=== PATIENT | male | born 1955 | race Caucasian/White ===

== ENCOUNTER → 2016-11-27 | Outpatient (CLI) | payer BC, OTHER ==
[~2016-11-27] MED LIST: ALTACE5 M1 PO; ASA81BEC PO; IRON325 PO; LIPITOR20 MG PO; LOPRESSOR 50 MG50 M1 PO; LORTAB 5-500 T1 EAC1 PO; MOM PO; PACERONE 200 M200 M1 PO; PERCOCET 5-3251 EACH PO; PHISOHEX148 ML TP; SENOKOT-S1 TA1 PO; UNICOMPLEX M TA1 TA1 PO
--- NOTE | ~2016-11-27 | 2DMMODE ---
[facility] [place] [address] 2 D/M-MODE ECHOCARDIOGRAM Name: MIAESTEBAN JOSE Room #: REG [facility]#: [id number] Admission: 11/27/16 Attend Phys: Emil Maza MD Discharge: Date of : 57 Date of Service: 11/27/16 1409 Report #: [id number] THIS REPORT FOR: //name// APPROVED REPORT EXAM: Comprehensive 2D, Doppler, and color-flow Echocardiogram Patient Location: Out-Patient Blood Pressure: 119/71 mmHg HR: 64 bpm Rhythm: NSR Other Information Study Quality: Adequate Indications CAD Hx: CABG, MURMUR, HTN, HLP 2D Dimensions RVDd: 40.44 mm LVEF(%): 66.05 (>50%) IVSd: 11.23 (7-11mm) LVOT Diam: 22.46 (18-24mm) LVDd: 41.67 mm PWd: 11.43 (7-11mm) Ascending Aorta: 30.34 mm LVDs: 26.66 (25-40mm) Aortic Root: 36.00 mm Torres's LVEF: 66.05 % Volumes Left Atrial Volume (Systole) Single Plane 4CH: 45.81 mL Single Plane 2CH: 45.93 mL LA ESV Index: 24.00 mL/m2 Aortic Valve AoV Peak David.: 2.36 m/s AO Peak Gr.: 22.35 mmHg LV Max P.91 mmHg AO V2 VTI: 414.01 mm LV Max: 1.11 m/s Mitral Valve MV PHT: 62.07 ms MV E Max David.: 0.76 m/s E/A Ratio: 1.7 MV A David.: 0.46 m/s MV Decel. Time: 214.[address] [facility] [place] [address] 2 D/M-MODE ECHOCARDIOGRAM Name: ESTEBAN BELLAMY Room #: REG [facility]#: [id number] Admission: 11/27/16 Attend Phys: Emil Maza MD Discharge: Date of : 57 Date of Service: 11/27/16 1409 Report #: [id number] Pulmonary Valve PV Peak David.: 1.10 m/s PV Peak Gr.: 4.83 mmHg Tricuspid Valve TR Peak David.: 2.22 m/s RAP Estimate: 5.00 mmHg TR Peak Gr.: 19.76 mmHg RVSP: 25.00 mmHg Left Ventricle The left ventricle is normal size. There is normal left ventricular wall thickness. Left ventricular systolic function is normal. LVEF is 55-60%. Grade II - pseudonormal filling dynamics. Right Ventricle The right ventricle is normal size. Right ventricle appears mildly hypokinetic. Atria The left atrium size is normal. The right atrium size is normal. Aortic Valve Aortic valve is moderately calcified. Mild aortic regurgitation. There is no aortic stenosis. Mitral Valve The mitral valve is normal in structure. There is no mitral valve regurgitation noted. There is no mitral valve stenosis. Tricuspid Valve The tricuspid valve is normal in structure. There is trace tricuspid regurgitation. The right atrial pressure is estimated at 5 mmHg. Estimated PAP is 25mmHg. Pulmonic Valve The pulmonary valve is normal in structure. Trace pulmonic regurgitation. Great Vessels The aortic root is normal in size. The ascending aorta is normal in size. IVC is normal in size and collapses >50% with inspiration. Pericardium There is no pericardial effusion. <Conclusion> [facility] [address] [place] [address] 2 D/M-MODE ECHOCARDIOGRAM Name: ESTEBAN BELLAMY Room #: REG [facility]#: [id number] Admission: 11/27/16 Attend Phys: Emil Maza MD Discharge: Date of : 57 Date of Service: 11/27/16 1409 Report #: [id number] The left ventricle is normal size. Left ventricular systolic function is normal. The right ventricle is normal size. The left atrium size is normal. Aortic valve is moderately calcified. Mild aortic regurgitation. There is no aortic stenosis. The mitral valve is normal in structure. There is no pericardial effusion. <ELECTRONICALLY SIGNED> By: Emil Maza MD 03/1408 08 08 Emil Maza MD /SAFIA
== END ==
LOC: CV 12:03
DX: I25.10 Atherosclerotic heart disease of native coronary artery without angina pectoris (principal); Z95.1 Presence of aortocoronary bypass graft; I10 Essential (primary) hypertension; E78.5 Hyperlipidemia, unspecified

== ENCOUNTER → 2017-06-14 | Outpatient (CLI) | payer BC, OTHER ==
--- NOTE | ~2017-06-14 | EXE ---
[facility] [address]oa[address] [place] [address] STRESS ECHOCARDIOGRAM Name: ESTEBAN BELLAMY Room #: REG [facility]#: [id number] Admission: 06/14/17 Attend Phys: Emil Maza MD Discharge: Date of : 57 Date of Service: 06/14/17 1052 Report #: [id number] THIS REPORT FOR: //name// APPROVED REPORT Exam: Stress Echocardiogram Indication: CAD Patient Location: Out-Patient Stress Nurse: Stacey Charles RN Status: routine Ht: 6 ft 0 in HR: 69 bpm BP: 158/91 mmHg Medical History Medical History: CAD s/p stent, CABG, HTN, HLP Allergies: No known drug allergies Procedure The patient underwent an Exercise Stress Test using the Lamont Protocol. Blood pressure, heart rate, and EKG were monitored. An Echocardiogram was performed by rehabilitation therapy technician in four stages in quad fashion. At peak stress, four selected images were obtained and placed side by side with resting images for comparison. Stress Test Details Stress Test: Exercise stress testing was performed using a Lamont protocol. HR Resting HR: 69 bpm Max Heart Rate (APMHR): 159 bpm Max HR Achieved: 144 bpm Target HR (85% APMHR): 135 bpm % of APMHR: 90 Recovery HR: 81 bpm HR response to stress: Normal HR response to stress BP Resting BP: 158/91 mmHg Max BP: 190/108 mmHg Recovery BP: 158/92 mmHg ECG Resting ECG: Sinus Rhythm, NSSTT changes Stress ECG: Sinus Rhythm, NSSTT changes ST Change: Eqivocal Clinical [facility] [address] [place] [address] STRESS ECHOCARDIOGRAM Name: ELIDIACORINEESTEBAN GARCIA Room #: REG [facility]#: [id number] Admission: 06/14/17 Attend Phys: Emil Maza MD Discharge: Date of : 57 Date of Service: 06/14/17 1052 Report #: [id number] Reason for Termination: moderate leg fatigue, dyspnea Stress Symptoms: Leg Fatigue Exercise duration: 9 min sec Highest Stage Achieved: Stage 3: 3.4 mph at 14% grade. Exercise capacity: 10.4 METs Pre-Stress Echo The resting Echocardiogram showed normal left ventricular contractility with an estimated Ejection Fraction of about 55-60%. Trivial MR, TR. Moderately calcified aortic valve. Mild AI. Post-Stress Echo The stress Echocardiogram showed normal left ventricular contractility with an estimated Ejection Fraction of about 70%. Normal augmentation of wall motion in all segments on post stress images. Clinical No clinical or ECG evidence for ischemia. Conclusion Clinical Response: Non-ischemic Exercise Capacity: Average Stress ECG Response: Equivocal Stress Echo Images: Non-ischemic No echocardiographic evidence for exercise induced ischemia. Other Information Study Quality: Adequate <Conclusion> No echocardiographic evidence for exercise induced ischemia. <ELECTRONICALLY SIGNED> By: Emil Maza MD 06/14/17 105 51 51 Emil Maza MD /INF
== END ==
LOC: CV 09:27
DX: I25.10 Atherosclerotic heart disease of native coronary artery without angina pectoris (principal); I10 Essential (primary) hypertension

== ENCOUNTER → 2021-04-21 | Outpatient (CLI) | payer OTHER | LOC: SJCVCIMAG 07:35 | PROVIDERS: ATTEND Internal Medicine Cardiovascular Disease | DX: I35.0 Nonrheumatic aortic (valve) stenosis (principal); I11.9 Hypertensive heart disease without heart failure; R06.00 Dyspnea, unspecified; R53.83 Other fatigue; I25.10 Atherosclerotic heart disease of native coronary artery without angina pectoris; E11.9 Type 2 diabetes mellitus without complications; I10 Essential (primary) hypertension; E78.00 Pure hypercholesterolemia, unspecified; Z95.5 Presence of coronary angioplasty implant and graft; Z95.1 Presence of aortocoronary bypass graft; Z79.82 Long term (current) use of aspirin; Z79.84 Long term (current) use of oral hypoglycemic drugs; Z79.899 Other long term (current) drug therapy; Z87.891 Personal history of nicotine dependence; Z82.49 Family history of ischemic heart disease and other diseases of the circulatory system ==

== ENCOUNTER → 2021-10-27 | Outpatient (CLI) | payer MEDICARE | LOC: SJCVC 15:26 | PROVIDERS: ATTEND Internal Medicine Cardiovascular Disease | DX: R94.31 Abnormal electrocardiogram [ECG] [EKG] (principal); I25.10 Atherosclerotic heart disease of native coronary artery without angina pectoris; E11.9 Type 2 diabetes mellitus without complications; I10 Essential (primary) hypertension; E78.00 Pure hypercholesterolemia, unspecified; I35.0 Nonrheumatic aortic (valve) stenosis; Z79.82 Long term (current) use of aspirin; Z79.84 Long term (current) use of oral hypoglycemic drugs; Z79.899 Other long term (current) drug therapy; Z87.891 Personal history of nicotine dependence; Z82.49 Family history of ischemic heart disease and other diseases of the circulatory system; Z95.1 Presence of aortocoronary bypass graft ==